=== PATIENT | female | born 1965 | race Caucasian/White ===

== ENCOUNTER → 2020-01-05 | Outpatient (CLI) | payer BC, SELFPAY ==
--- NOTE | 2020-01-05 | COLBX_PTH ---
PATIENT: STACI BRAR [facility] U#:[id number] AGE/SX: 54/F ROOM: RE01/05/[address]: Dr. Matteo Edmonds MD : 1965 BED: DIS: 01/05/2020 SPEC #: [id number] RECD: 01/05/20 15:00 STATUS: JANIS THERESA #: [id number] VAN: 01/05/20 00:[address]: Matteo Edmonds DEPT: SURGICAL PATHOLOGY RECD BY: Neo Rivero ENTERED: 01/08/20 06:59 SP TYPE: COLON BX RAJAT DR: TODD Tissues: A - Ileum, NOS B - COLON BIOPSY Procedures: Trichrome (control) Special Stain Group II Surgery Specimen Level IV HEADER OPERATION: Colonoscopy with biopsies PRE-OP DIAGNOSIS: Diarrhea / microscopic colitis TISSUE SUBMITTED: A - Terminal ileum, rule out Crohn's, B - Left and right colon biopsies, rule out microscopic colitis MICROSCOPIC DIAGNOSIS A. Terminal ileum, biopsy: Fragments of small intestine mucosa, no pathologic diagnosis. B. Left and right colon, biopsy: Fragments of colonic mucosa with changes consistent with collagenous colitis. See comment. GIULIA:vicky 01/09/20 COMMENT B. Trichrome stain with matched control is used in the evaluation of the specimen and shows focal thickening of subepithelial collagen band. Correlation with clinical, endoscopic findings and appropriate follow up are necessary. MICROSCOPIC DESCRIPTION Slides are reviewed. GROSS DESCRIPTION A - Received in fixative is one container labeled with the patient's name and designated terminal ileum biopsy. The specimen consists of multiple irregular fragments of light nagel soft tissue that in aggregate measure 1 x 0.3 x 0.1 cm. The specimen is totally submitted in one cassette. B - Received in fixative is one container labeled with the patient's name and designated right and left colon biopsy. The specimen consists of multiple irregular fragments of light nagel soft tissue that in aggregate measure 2 x 0.5 x 0.1 cm. The specimen is totally submitted in one cassette. / GIULIA:vicky 9/21/20 TC:5 CPT: 32035 x2, 86131
== END | disposition home or self-care (01) ==
LOC: LABSPEC 16:26
PROVIDERS: Referring Provider Internal Medicine Gastroenterology; Visit Provider Internal Medicine Gastroenterology
DX: K52.839 Microscopic colitis, unspecified (principal)
CPT/HCPCS: 88305; 88313